=== PATIENT | male | born 2000 | race Caucasian/White ===

== ENCOUNTER 2018-08-16 06:24 | Emergency (ER) | payer MEDICAID, OTHER ==
[~2018-08-16] VITALS: Ht 170.2 cm; Wt 113.4 kg
[2018-08-16 06:32] VITALS: BP 126/67
--- NOTE | 2018-08-16 06:37 | NUR ---
PT TAKEN TO BED 6
--- NOTE | 2018-08-16 06:39 | NUR ---
Dr. Whitten evaluating patient at bedside.
--- NOTE | 2018-08-16 06:40 | NUR ---
PT BIB S/O C/O TROUBLE BREATHING SINCE YESTURDAY. PT STATES TO USING INHALER W/O RELIEF. PAIN 6/10 UPON INSPIRATION. DENIES N/V/D. AAOX4. NO RESPIRATORY DISTRESS AT THIS TIME. SKIN IS PINK/WARM/DRY; LUNGS CLEAR BL; HR EVEN AND REGULAR; PT DENIES ANY FEVER, CP; VSS; PATIENT POSITIONED FOR COMFORT; HOB ELEVATED; BEDRAILS UP X1; BED DOWN. ER MD MADE AWARE OF PT STATUS. PMH: ASTHMA RX: ALBUTEROL
[2018-08-16] MEDS ORDERED: ALBUTEROL SULFATE/IPRATROPIU 3 ML SOL IH ONE (06:45)
--- NOTE | 2018-08-16 06:45 | NUR ---
ADMITTING DX: SOB HX: ASTHMA AWAKE AND ALERT V ERBALLY RESPONSIVE HFW POSITION EDUCATION PROVIDED TO PATIENT WITH ACKNOWLEDGEMENT ON HHN THERAPY RESPIRATORY DRUG AND PEAK FLOW METER HHN THERAPY GIVEN OREDERED ENCOURAGED PATIENT FOR INTERMITTENT DEEP BREATHING DURING THERAPY TOLERATED WELL WITHOUT INCIDENT PEAK FLOW METER: before 275 l/m after 340 l/m
[2018-08-16] MEDS ORDERED: predniSONE 20 MG TAB PO ONE (06:50)
--- NOTE | 2018-08-16 06:52 | NUR ---
RT AT BEDSIDE FOR TX.
--- NOTE | 2018-08-16 07:12 | NUR ---
Pt report given to Thalia VERDUGO. Transfer of care at this time.
[2018-08-16 07:20] VITALS: BP 120/75
--- NOTE | 2018-08-16 07:20 | NUR ---
Patient discharged with v/s stable. Written and verbal after care instructions given and explained. Patient alert, oriented and verbalized understanding of instructions. Ambulatory with steady gait. All questions addressed prior to discharge. ID band removed. Patient advised to follow up with PMD. Rx of Prednisone 50mg given. Patient educated on indication of medication including possible reaction and side effects. Opportunity to ask questions provided and answered.
== END 2018-08-16 07:20 | disposition home or self-care (01) ==
LOC: MED 06:24
DX: J45.901 Unspecified asthma with (acute) exacerbation (principal); R03.0 Elevated blood-pressure reading, without diagnosis of hypertension; F12.10 Cannabis abuse, uncomplicated
CPT/HCPCS: 94640; 99283; J7512; J7620

== ENCOUNTER 2019-04-14 05:40 | Emergency (ER) | payer OTHER ==
[~2019-04-14] VITALS: Ht 167.6 cm; Wt 88.6 kg
[2019-04-14 05:45] VITALS: BP 124/62
[2019-04-14] MEDS: KETOROLAC 60 MG/2 ML VIAL IM ONE (06:35)
[2019-04-14 06:58] VITALS: BP 116/60
== END 2019-04-14 06:58 | disposition home or self-care (01) ==
LOC: MED 05:40
DX: M54.5 Low back pain (principal); J45.909 Unspecified asthma, uncomplicated; F12.90 Cannabis use, unspecified, uncomplicated; Z91.013 Allergy to seafood
CPT/HCPCS: 81002; 96372; 99283; J1885

== ENCOUNTER 2020-09-23 22:55 | Emergency (ER) | payer OTHER ==
[~2020-09-23] VITALS: Ht 170.2 cm; Wt 106.6 kg
[2020-09-23 23:05] VITALS: BP 126/89
[2020-09-23] MEDS ORDERED: ONDANSETRON 4 MG/2 ML VIAL IVP ONE (23:30)
[2020-09-23] MEDS ORDERED: NACL 0.9% 1,000 ML IV ONE (23:30)
[2020-09-24 00:01] LABS: BASOPHILS % (AUTO) 0.3 % (0.0-2.0); EOSINOPHILS # (AUTO) 0.2 K/uL (0-0.4); EOSINOPHILS % (AUTO) 1.4 % (0.0-4.0); HEMOGLOBIN 16.8 g/dL (12.0-18.0); LYMPHOCYTES # (AUTO) 2.4 K/uL (2.0-11.5); LYMPHOCYTES % (AUTO) 15.3 % (20.5-51.1); MEAN CORPUSCULAR HEMOGLOBIN 31 pg (27-31); MEAN CORPUSCULAR HGB CONC 34 g/dL (33-37); MEAN CORPUSCULAR VOLUME 90.4 fL (80-94); MONOCYTES # (AUTO) 0.8 K/uL (0.8-1.0); MONOCYTES % (AUTO) 5.3 % (1.7-9.3); NEUTROPHILS # (AUTO) 12.3 K/uL (1.8-7.7); NEUTROPHILS % (AUTO) 77.7 % (42.2-75.2); PLATELET COUNT (AUTO) 218 K/uL (140-450); RED BLOOD CELL COUNT(AUTO) 5.42 MIL/uL (4.20-6.10); RED CELL DISTRIBUTION WIDTH 12.4 % (11.6-13.7); WHITE BLOOD COUNT (AUTO) 15.8 K/uL (4.8-10.8)
[2020-09-24 00:09] LABS: ALBUMIN 4.5 g/dL (3.4-5.0); ANION GAP 13.2 (8-16); CARBON DIOXIDE 28.7 mmol/L (21-32); CREATININE 1.1 mg/dL (0.6-1.3); POTASSIUM 3.9 mmol/L (3.5-5.1); TOTAL BILIRUBIN 0.7 mg/dL (0.0-1.0)
[2020-09-24] MEDS ORDERED: ONDA-24 SL (01:11)
[2020-09-24] MEDS ORDERED: DOCU-299 PO (01:12)
[2020-09-24 01:24] VITALS: BP 99/70
== END 2020-09-24 01:24 | disposition home or self-care (01) ==
LOC: MED 22:55
DX: R55 Syncope and collapse (principal); F12.90 Cannabis use, unspecified, uncomplicated; F17.200 Nicotine dependence, unspecified, uncomplicated; J45.909 Unspecified asthma, uncomplicated; Z91.013 Allergy to seafood; Z79.899 Other long term (current) drug therapy
CPT/HCPCS: 36415; 71045; 80053; 85025; 93005; 96361; 96374; 99285; J2405

== ENCOUNTER 2020-10-16 23:16 | Emergency (ER) | payer OTHER ==
[~2020-10-16] VITALS: Ht 167.6 cm; Wt 104.3 kg
[~2020-10-16 23:16] MED LIST: DOCU-299 PO; ONDA-24 SL
[2020-10-16 23:26] VITALS: BP 105/65
--- NOTE | 2020-10-16 23:26 | NUR ---
to bed ambulatory
--- NOTE | 2020-10-17 00:10 | NUR ---
Dr. Bui examining patient.
[2020-10-17] MEDS ORDERED: MAGNESIUM CITRATE 300 ML BTL PO ONE (00:30)
[2020-10-17 01:22] VITALS: BP 105/65
--- NOTE | 2020-10-17 01:23 | NUR ---
Patient discharged with v/s stable. Written and verbal after care instructions given and explained. Patient verbalized understanding. Ambulatory with steady gait. All questions addressed prior to discharge. Advised to follow up with PMD.
== END 2020-10-17 01:23 | disposition home or self-care (01) ==
LOC: MED 23:16
DX: R10.9 Unspecified abdominal pain (principal); R20.2 Paresthesia of skin; R06.02 Shortness of breath; J45.909 Unspecified asthma, uncomplicated; Z79.899 Other long term (current) drug therapy; Z91.013 Allergy to seafood
CPT/HCPCS: 99282